=== PATIENT | female | born 1985 | race Caucasian/White ===

== ENCOUNTER 2022-06-17 17:55 | Emergency (ER) | payer MEDICAID ==
[~2022-06-17] VITALS: Ht 162.6 cm; Wt 68.0 kg
--- NOTE | 2022-06-17 17:59 | NUR ---
Patient to ER bed 07 to gown for evaluation. Side rails up.
[2022-06-17 18:01] VITALS: BP_SYST 122
[2022-06-17] MEDS ORDERED: IPRATROPIUM BROM 0.5 MG/2.5 ML VIAL.NEB (ATROVENT) INH ONE ×3 (18:03→20:45)
[2022-06-17] MEDS ORDERED: ALBUTEROL SULFATE 0.083% 2.5 MG/3 ML VIAL.NEB INH ONE ×3 (18:03→20:45)
--- NOTE | 2022-06-17 18:09 | NUR ---
Pt bib self from car (homeless) CC SOB wheezing, tachypnea, accessory muscle use, pt states SOB past week onset R/T productive cough with light green phlegm, throat is sore chest wall pain and headache. Pt states currently a smoker.
--- NOTE | 2022-06-17 18:15 | NUR ---
ER at bedside examining patient.
[2022-06-17] MEDS ORDERED: METHYLPREDNISOLONE SOD SUCC 40 MG/ML VIAL INJ ONE (18:30)
--- NOTE | 2022-06-17 18:30 | NUR ---
pt with respiratory recieving treatment. pt saturation 88% room air. 10 liters rebreather mask pt at 97%. pt notes history of smoking 25 years. Refuses cessation method.
[2022-06-17] MEDS ORDERED: methylPREDNISolone SOD SUCC/PF 62.5 MG/ML VIAL ONE (20:43)
[2022-06-17] MEDS ORDERED: ALBU8.5H8 INH (22:18)
[2022-06-17] MEDS ORDERED: PRED20TA PO (22:19)
--- NOTE | 2022-06-17 22:54 | NUR ---
Patient does not wish to proceed with medical care recommended by MD Hermosillo. Patient given information related to possible complications, up to and including , which could occur as a result of leaving hospital at this time. Patient verbalizes understanding of risks involved leaving against medical advice. Patient has signed AMA form.
[2022-06-17 22:55] VITALS: BP_SYST 121
== END 2022-06-17 22:55 | disposition home or self-care (01) ==
LOC: SED 17:55
DX: J45.901 Unspecified asthma with (acute) exacerbation (principal); R06.02 Shortness of breath; R05.9 Cough, unspecified; R51.9 Headache, unspecified; Z79.899 Other long term (current) drug therapy
CPT/HCPCS: 94640; 99291; J2930; J7613; 99283

== ENCOUNTER 2022-08-15 22:10 | Emergency (ER) | payer MEDICAID ==
[~2022-08-15] VITALS: Ht 162.6 cm; Wt 103.0 kg
[~2022-08-15 22:10] MED LIST: ALBU8.5H8 INH; PRED20TA PO
[2022-08-15 22:35] VITALS: BP_SYST 117
--- NOTE | 2022-08-15 22:41 | NUR ---
Patient triaged and placed in waiting room. VS checked and patient appears in no acute distress at this time. Accompanied by self, awaiting available bed, and MD notified of need for MSE.
[2022-08-15] MEDS ORDERED: IPRATROPIUM/ALBUTEROL SULFATE 3 ML AMPUL.NEB (DUONEB) INH ONE (23:15)
[2022-08-15] MEDS: predniSONE 20 MG TABLET PO ONE (23:19)
--- NOTE | 2022-08-15 23:21 | NUR ---
bibs w c/o shortness of breath sec to asthma. Hx of cigarette smoking. a/o x 4, ambulatory, denies chest pain, dizziness, n/v/d.
[2022-08-16] MEDS ORDERED: PRED20TA PO (00:07)
[2022-08-16] MEDS ORDERED: ALBMDI INH (00:07)
[2022-08-16 00:37] VITALS: BP_SYST 117
--- NOTE | 2022-08-16 00:37 | NUR ---
Patient given written and verbal discharge instructions and verbalizes understanding. ER MD discussed with patient the results and treatment provided. Patient in stable condition. ID arm band removed. Rx of PREDNISONE & ALBUTEROL MDI given. Patient educated on pain management and to follow up with PMD. Pain Scale 0/10. Opportunity for questions provided and answered. Medication side effect fact sheet provided.
== END 2022-08-16 00:37 | disposition home or self-care (01) ==
LOC: SED 22:10
DX: J45.909 Unspecified asthma, uncomplicated (principal); R06.02 Shortness of breath; Z79.899 Other long term (current) drug therapy
CPT/HCPCS: 99283; 94640; J7512